=== PATIENT | female | born 1945 | race Hispanic/Latino ===

== ENCOUNTER 2020-02-21 06:22 | Day surgery (SDC) | payer MEDICARE ==
[2020-02-21 07:38] LABS: Basophils % (Auto) 0.8 % (0.0-1.8); Eosinophils # (Auto) 0.2 K/mm3 (0.0-0.4); Eosinophils % (Auto) 4.5 % (0.0-4.3); Hematocrit 33.5 % (30.3-42.9); Lymphocytes # (Auto) 1.2 K/mm3 (1.2-5.4); Lymphocytes % (Auto) 29.1 % (13.4-35.0); Mean Corpuscular HGB Conc 33 % (30-34); Mean Corpuscular Volume 79 fl (79-97); Monocytes # (Auto) 0.4 K/mm3 (0.0-0.8); Monocytes % (Auto) 10.1 % (0.0-7.3); Platelet Count 362 K/mm3 (140-440); Red Blood Count 4.27 M/mm3 (3.65-5.03); Red Cell Distribution Width 17.4 % (13.2-15.2)
[2020-02-21 07:49] LABS: INR 3.55 (0.87-1.13)
[2020-02-21] MEDS ORDERED: HEPARIN/NS 5000 UNIT/500ML 1,000 ML IR ONE (07:59)
[2020-02-21] MEDS ORDERED: HEPARIN 10,000 UNITS/10 ML VIAL ONE (07:59)
[2020-02-21] MEDS: SODIUM CHLORIDE 0.9% 500 ML 500 ML IV SCH ×2 (08:01→09:30)
[2020-02-21 08:07] LABS: Blood Urea Nitrogen 8 mg/dL (7-17); Calcium 9.5 mg/dL (8.4-10.2); Hemolysis Index 6
[2020-02-21 08:32] LABS: BUN/Creatinine Ratio 13
[2020-02-21 08:52] LABS: Alanine Aminotransferase 7 units/L (7-56); Albumin 3.8 g/dL (3.9-5); Blood Urea Nitrogen 8 mg/dL (7-17); Calcium 9.7 mg/dL (8.4-10.2); Hemolysis Index 8
[2020-02-21 09:23] LABS: BUN/Creatinine Ratio 13
[2020-02-21] MEDS: fentaNYL 100 MCG/2 ML INJ ONE ×5 (09:30→11:01)
[2020-02-21] MEDS: MIDAZOLAM 2 MG/2 ML INJ ONE ×6 (09:30→11:01)
[2020-02-21] MEDS: LIDOCAINE 1%/EPINEPHRINE 1:100,000 VIAL (20 ML) INFILTRATI ONE ×2 (09:32→09:36)
--- NOTE | 2020-02-21 11:18 | Short Stay Summary ---
Short Stay Documentation Date of service: 02/21/20 - History Principal diagnosis: Left leg DVT, left iliac vein stenosis H&P: obtained from office - Allergies and Medications Current Medications: Allergies Penicillins Allergy (Verified 02/21/20 07:02) Rash Sulfa (Sulfonamide Antibiotics) Allergy (Verified 02/21/20 07:02) Rash Home Medications Medication Instructions Recorded Confirmed Last Taken Type Cetirizine HCl [Zyrtec 10mg tab] 10 mg PO PRN PRN 02/21/20 02/21/20 1 Week Ago History ~02/14/20 Cholecalciferol (Vitamin D3) 5,000 unit PO DAILY 02/21/20 02/21/20 02/20/20 History [Vitamin D3] Cyanocobalamin (Vitamin B-12) 500 mcg PO DAILY 02/21/20 02/21/20 02/20/20 History [Vitamin B-12] Exenatide Microspheres [Bydureon] 2 mg SQ QWEEK 02/21/20 02/21/20 02/13/20 History Lisinopril [Zestril TAB] 2.5 mg PO QHS 02/21/20 02/21/20 02/20/20 History Rivaroxaban [Xarelto] 15 mg PO BID 02/21/20 02/21/20 02/21/20 05:00 History Rosuvastatin Calcium 5 mg PO DAILY 02/21/20 02/21/20 02/20/20 History glyBURIDE [Diabeta] 5 mg PO DAILY 02/21/20 02/21/20 02/20/20 History Active Medications Sodium Chloride (Nacl 0.9% 500 Ml) 500 mls @ 50 mls/hr IV DIRECT CARLEEN Last Admin: 02/21/20 09:30 Dose: 50 mls/hr Documented by: Clindamycin HCl (Cleocin 900 Mg/50 Ml) 900 mg in 50 mls @ 100 mls/hr IV PREOP NR; Protocol Stop: 02/21/20 12:00 Last Admin: 02/21/20 09:30 Dose: 50 mls Documented by: - Brief post op/procedure progress note Date of procedure: 02/21/20 Pre-op diagnosis: Left leg DVT, left iliac vein stenosis Post-op diagnosis: same Procedure: Left leg thrombectomy, placement of IVC filter Anesthesia: local Surgeon: ARUN HUSSEIN Estimated blood loss: minimal Pathology: none Specimen disposition: discarded (Clot) Condition: stable - Disposition Condition at discharge: Good Disposition: DC-01 TO HOME OR SELFCARE Short Stay Discharge Plan Activity: advance as tolerated Weight Bearing Status: Weight Bear as Tolerated Diet: regular Wound: keep clean and dry, per your surgeon's advice Follow up with: MARTI GILMORE FNP [Primary Care Provider] - 7 Days ARUN HUSSEIN MD [Staff Physician] - 7 Days
--- NOTE | 2020-02-21 11:27 | Operative Report ---
Operative Report Operative Report: Exam: Ultrasound of fluoroscopic guided placement of IVC filter, left leg thrombectomy Clinical indication: Patient with a history of left iliofemoral DVT with symptomatic left lower extremity swelling. Date: 02/21/2020 Procedure: Following an explanation of the risks, benefits and alternatives; written informed consent was obtained. The patient was brought to the angiographic suite and placed in supine position on the examination table. Initial ultrasound evaluation of her right groin demonstrated a patent right common femoral vein. The patient's right groin was prepped and draped in the usual sterile fashion. 1% lidocaine was used for anesthesia. Under ultrasound guidance, the right common femoral vein was cannulated with a 7 cm 18-gauge needle. A 0.035 guidewire was advanced centrally. The needle was removed and a 5 Cameroonian sheath placed. Contrast was then injected through the sheath. This demonstrates prompt opacification of the common femoral vein, external iliac vein, common iliac vein and IVC. The level of the renal veins are identified. The 5 Cameroonian sheath was removed and replaced with a 10 Cameroonian IVC filter introducer sheath and trocar. Together the trocar and introducer sheath were advanced over the guidewire under fluoroscopy to the infrarenal IVC. The trocar was removed. A Bard Camelia IVC filter was then advanced through the sheath and deployed in the infrarenal IVC. The sheath was withdrawn proximally an additional contrast injected. This demonstrates satisfactory positioning with no significant tilt. The sheath was then withdrawn into the left common iliac vein and locked with sterile heparinized saline. The patient was then placed prone. Initial ultrasound evaluation of the patient's popliteal fossa demonstrated a patent popliteal vein. The patient's popliteal fossa was prepped and draped in usual sterile fashion. 1% lidocaine was used for anesthesia. Under ultrasound guidance, the left popliteal vein was cannulated with a 7 cm 18-gauge needle. A 0.035 guidewire was advanced centrally. The needle was removed and a 5 Cameroonian sheath placed. A 5 Cameroonian vertebral catheter was then advanced through the sheath over the guidewire and together the catheter and guidewire were manipulated through the occluded femoral vein, common femoral v ein, external iliac vein and common iliac vein into the IVC. Contrast was injected which demonstrated true luminal placement within the IVC. A V 18 guidewire was then advanced through the catheter and the catheter withdrawn proximally with additional contrast being injected at multiple locations. This demonstrates occlusion of the common iliac vein, external iliac vein, common femoral vein. There is extensive collateral formation extending from the left common femoral vein through the pelvis. Additional contrast was then injected as the catheter withdrawn more proximally. The proximal superficial femoral vein is filled with thrombus. The more distal superficial femoral vein appears patent. The catheter was then advanced over the guidewire and the V 18 guidewire exchanged for an advantage guidewire. Together the advantage guidewire and catheter were used to cross the bifurcation. Together the catheter and guidewire were then advanced down the right side into the popliteal vein. The catheter was removed. Following serial dilation over the guidewire, and Innari Clotreiver sheath was then advanced over the guidewire and placed in the popliteal vein. The clot Treiber device was then advanced over the guidewire and down the right side to position the proximal end of the retrieval basket and the left common iliac vein just below the bifurcation. A total of 3 passes were made in multiple obliquities to remove as much clot as possible. The clot had the appearance of both predominantly chronic and acute component. Following thrombectomy, venoplasty was then performed using a 12 mm x 60 mm balloon from the common iliac vein into the common femoral vein on the left. Post thrombectomy and venoplasty imaging demonstrated brisk flow throughout the pelvis however, there is extrinsic compression of the vein which likely is a component of the patient's underlying DVT. At this point, the catheters, guidewires and sheaths were removed from both the left popliteal vein and right common femoral vein. Hemostasis was achieved using manual compression. Sterile compression dressings were applied. The patient tolerated all procedures well. There were no immediate pos tprocedure complications. Conscious sedation was performed under the guidance of radiologic nursing. Continuous cardiopulmonary monitoring was utilized. Impression: 1) Ultrasound of fluoroscopic guided placement of IVC filter. 2) Left lower extremity venography demonstrating thrombus extending from the IVC to involve the left common iliac vein, left external iliac vein, left common femoral vein and proximal left superficial femoral vein. 3) Mechanical thrombectomy using an RA clot Treiber thrombectomy device. 4) Venoplasty using 12 mm x 60 mm balloon of the common iliac vein, external iliac vein and common femoral vein on the left. 5) Postintervention imaging demonstrated brisk flow throughout the iliac veins with only minimal residual chronic thrombus. The patient does have extrinsic compression of the left common iliac vein which is narrowing the lumen. The patient will ultimately require treatment of her deep venous system with likely stents and reconstruction of her iliac veins.
[2020-02-21 13:36] VITALS: BP 131/68
== END 2020-02-21 14:00 | disposition home or self-care (01) ==
LOC: CATHLABREC 06:22
PROVIDERS: ATTEND Radiology Diagnostic Radiology
DX: I82.422 Acute embolism and thrombosis of left iliac vein (principal); I10 Essential (primary) hypertension; E78.00 Pure hypercholesterolemia, unspecified; M06.9 Rheumatoid arthritis, unspecified; Z88.0 Allergy status to penicillin; Z88.2 Allergy status to sulfonamides; Z79.899 Other long term (current) drug therapy; Z98.41 Cataract extraction status, right eye; Z98.42 Cataract extraction status, left eye; Z90.49 Acquired absence of other specified parts of digestive tract; Z90.710 Acquired absence of both cervix and uterus; Z98.890 Other specified postprocedural states
CPT/HCPCS: 36415; 37187; 37191; 37248; 37249; 75820; 80048; 80053; 85025; 85610; 85730; 99156; 99157; C1725; C1757; C1769; C1880; C1894; J1644; J2250; J3010; J7040; 76937; Q9967

== ENCOUNTER 2020-04-03 06:35 | Day surgery (SDC) | payer MEDICARE ==
[2020-04-03 07:23] LABS: Basophils % (Auto) 0.6 % (0.0-1.8); Eosinophils # (Auto) 0.1 K/mm3 (0.0-0.4); Eosinophils % (Auto) 1.8 % (0.0-4.3); Hematocrit 33.4 % (30.3-42.9); Lymphocytes # (Auto) 1.4 K/mm3 (1.2-5.4); Lymphocytes % (Auto) 29.8 % (13.4-35.0); Mean Corpuscular HGB Conc 33 % (30-34); Mean Corpuscular Volume 81 fl (79-97); Monocytes # (Auto) 0.3 K/mm3 (0.0-0.8); Monocytes % (Auto) 6.7 % (0.0-7.3); Platelet Count 297 K/mm3 (140-440); Red Blood Count 4.15 M/mm3 (3.65-5.03); Red Cell Distribution Width 17.7 % (13.2-15.2)
[2020-04-03 07:33] LABS: INR 1.06 (0.87-1.13)
[2020-04-03 07:34] LABS: Blood Urea Nitrogen 8 mg/dL (7-17); Calcium 9.8 mg/dL (8.4-10.2); Hemolysis Index 2
[2020-04-03] MEDS ORDERED: SODIUM CHLORIDE 0.9% 500 ML 500 ML ONE ×2 (07:38→10:45)
[2020-04-03 07:41] LABS: BUN/Creatinine Ratio 13
[2020-04-03] MEDS ORDERED: SODIUM CHLORIDE 0.9% 500 ML 500 ML IV SCH (08:00)
[2020-04-03] MEDS ORDERED: HEPARIN/NS 5000 UNIT/500ML 1,000 ML IR ONE (08:11)
[2020-04-03] MEDS ORDERED: KETOROLAC 30 MG/1 ML INJ ONE (08:11)
[2020-04-03] MEDS ORDERED: LIDOCAINE (2%) 20 MG/1 ML VIAL 20 ML MDV INFILTRATI ONE (08:12)
[2020-04-03] MEDS ORDERED: CLINDAMYCIN 600 MG/50 mL 600 MG/50 ML BAG IV ONE (08:29)
[2020-04-03] MEDS: MIDAZOLAM 2 MG/2 ML INJ ONE ×7 (08:57→11:15)
[2020-04-03] MEDS: fentaNYL 100 MCG/2 ML INJ ONE ×7 (08:57→11:19)
[2020-04-03] MEDS: LIDOCAINE (2%) 20 MG/1 ML VIAL 20 ML MDV INFILTRATI ONE ×3 (09:28→10:28)
[2020-04-03] MEDS: diphenhydrAMINE 50 MG/ML VIAL ONE ×2 (10:43→10:57)
[2020-04-03] MEDS ORDERED: fentaNYL 100 MCG/2 ML INJ ONE (11:19)
[2020-04-03] MEDS ORDERED: HEPARIN 10,000 UNITS/10 ML VIAL ONE (11:19)
[2020-04-03] MEDS ORDERED: MIDAZOLAM 2 MG/2 ML INJ ONE (11:19)
--- NOTE | 2020-04-03 13:09 | Short Stay Summary ---
Short Stay Documentation Date of service: 04/03/20 - History Principal diagnosis: left leg DVT H&P: obtained from office - Allergies and Medications Current Medications: Allergies Penicillins Allergy (Verified 02/21/20 07:02) Rash Sulfa (Sulfonamide Antibiotics) Allergy (Verified 02/21/20 07:02) Rash Home Medications Medication Instructions Recorded Confirmed Last Taken Type Cetirizine HCl [Zyrtec 10mg tab] 10 mg PO PRN PRN 02/21/20 04/03/20 04/02/20 History Cholecalciferol (Vitamin D3) 5,000 unit PO DAILY 02/21/20 04/03/20 04/02/20 History [Vitamin D3] Cyanocobalamin (Vitamin B-12) 500 mcg PO DAILY 02/21/20 04/03/20 04/02/20 History [Vitamin B-12] Exenatide Microspheres [Bydureon] 2 mg SQ QWEEK 02/21/20 04/03/20 04/02/20 History Lisinopril [Zestril TAB] 2.5 mg PO QHS 02/21/20 04/03/20 04/02/20 History Rivaroxaban [Xarelto] 20 mg PO DAILY 02/21/20 04/03/20 04/02/20 History 0800 Rosuvastatin Calcium 5 mg PO DAILY 02/21/20 04/03/20 04/02/20 History glyBURIDE [Diabeta] 10 mg PO BID 02/21/20 04/03/20 04/02/20 History oxyCODONE /ACETAMINOPHEN [Percocet 1 tab PO Q6HR PRN #18 tablet 02/21/20 04/03/20 Unknown Rx 5/325] Active Medications Sodium Chloride (Nacl 0.9% 500 Ml) 500 mls @ 50 mls/hr IV DIRECT CARLEEN Last Admin: 04/03/20 07:43 Dose: 50 mls/hr Documented by: - Brief post op/procedure progress note Date of procedure: 04/03/20 Pre-op diagnosis: left leg dvt Post-op diagnosis: same Procedure: left leg mechanical thrombectomy/venoplasty Anesthesia: local Surgeon: ARUN HUSSEIN Estimated blood loss: minimal Pathology: none Condition: stable - Disposition Condition at discharge: Good Disposition: DC-01 TO HOME OR SELFCARE Short Stay Discharge Plan Activity: advance as tolerated Weight Bearing Status: Weight Bear as Tolerated Diet: regular Wound: keep clean and dry, per your surgeon's advice Follow up with: MARTI GILMORE FNP [Primary Care Provider] - 7 Days
--- NOTE | 2020-04-03 13:16 | Operative Report ---
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 On the left, patient also has left leg DVT with recurrence secondary to nonambulatory status. Date: 04/03/2020 Procedure: Following an explanation of the risk, benefits and alternatives; written informed consent was obtained. The patient was brought to the angiographic suite and placed in supine position on the examination table. Ini tial ultrasound evaluation of the right groin demonstrated a patent right common femoral vein. Initial ultrasound evaluation of the left groin demonstrated thrombus within the proximal femoral vein. Both groins were prepped and draped in the usual sterile fashion. 1% lidocaine was used for anesthesia. On the right, under ultrasound guidance, the common femoral vein was cannulated with a 7 cm 18-gauge needle. A 0.035 guidewire was advanced centrally. The needle was removed and a 5 Uzbek sheath placed. On the left, under ultrasound guidance, the right proximal femoral vein was cannulated with a 7 cm 18-gauge needle. A 0.035 guidewire would not advance more more distally. Additional attempts to cannulate the proximal femoral vein, greater saphenous vein and common femoral vein were successful however, the wire would not advance distally. Contrast injected through the micro sheath was placed over the guidewire demonstrate extensive collateral formation with nonvisualization of the common femoral vein, external iliac vein and common iliac vein on the left. At that point, decision was made to attempt prone access. The patient was placed in prone position. Initial ultrasound evaluation of the right leg demonstrated a patent popliteal vein. Initial ultrasound evaluation of the left vein demonstrated thrombus within the popliteal vein. The short saphenous vein appears patent. Both popliteal fossa were prepped and draped in the usual sterile fashion. 1% lidocaine was used for anesthesia. Under ultrasound guidance, the popliteal vein was cannulated multiple times. A 7 cm 18-gauge needle was utilized. A 0.018 guidewire was then advanced through the needle and the needle exchanged for a micro-sheath. Contrast was injected through the micro sheath which demonstrates nonvisualization of the popliteal vein however, there is extensive collateral formation involving the entire upper thigh. Access was then obtained through the small saphenous vein. Again, throm bus is present within the small saphenous vein however it is nonocclusive. A 0.035 guidewire was advanced through the 7 cm 18-gauge needle used for access. The needle was removed and a micro-sheath placed. Contrast was injected which demonstrates thrombus in the visualized portion of the popliteal vein and extensive collateral formation. A 0.035 guidewire was in manipulated into the proximal femoral vein. The micro sheath was exchanged for a vertebral catheter and together the very vertebral catheter and guidewire advanced under fluoroscopy to the IVC. The 0.035 guidewire was exchanged for a 0.018 guidewire and contrast injected through the vertebral catheter was was withdrawn proximally. True luminal placement was noted throughout the course of the catheter. The lumen is only the size of the catheter. Thrombus is present throughout the visualized common iliac vein, external iliac vein, common femoral vein, femoral vein and popliteal vein. The profunda appears patent. Maceration of the thrombus was then performed using an 8 mm x 100 mm balloon from the IVC to the sheath insertion site. Additional venoplasty was performed in the common femoral vein. Contrast was injected which demonstrated flow extending from the popliteal vein into the IVC. At this point, the procedure was terminated. All guidewires, catheters and sheaths were removed and hemostasis achieved at all access sites using manual compression. A sterile dressing was applied. The patient tolerated the procedure well. There were no immediate postprocedure complications. Conscious sedation was performed under the guidance of radiologic nursing. Continuous cardiopulmonary monitoring was utilized. IMPRESSION: 1) Right lower extremity venogram demonstrating a widely patent system on the right extending into the IVC. The IVC filter has no retained thrombus. 2) Multiple attempts to cannulate the left common femoral vein, left greater saphenous vein and left proximal femoral vein without advancement of the guidewire. Contrast injected through a micro-sheath placed in the greater saphenous vein demonstrate extensive collateral formation draining the left. 3) Left small saphenous vein access from a prone approach with cannulation of the occluded popliteal vein, femoral vein, external iliac vein, common iliac vein into the IVC demonstrating stenosis, mature collateral formation and retained thrombus. Maceration of the thrombus and venoplasty was performed using an 8 mm x 100 mm balloon with luminal flow from the popliteal vein into the IVC at the conclusion of the procedure. Patient will need to remain on anticoagulation and return for additional interventions including stent placement in the common iliac vein and external iliac vein likely extending into the proximal femoral vein given the degree of stenosis in the common femoral vein.
[2020-04-03] MEDS ORDERED: oxyCODONE /ACETAMINOPHEN 5-325MG TAB PO ONE (13:26)
[2020-04-03] MEDS ORDERED: oxyCODONE /ACETAMINOPHEN 5-325MG TAB ONE (13:35)
[2020-04-03 14:24] VITALS: BP 130/61
== END 2020-04-03 14:30 | disposition home or self-care (01) ==
LOC: CATH 06:35
PROVIDERS: ATTEND Radiology Diagnostic Radiology
DX: I87.1 Compression of vein (principal); E78.00 Pure hypercholesterolemia, unspecified; I82.4Y2 Acute embolism and thrombosis of unspecified deep veins of left proximal lower extremity; I82.422 Acute embolism and thrombosis of left iliac vein; I10 Essential (primary) hypertension; Z90.49 Acquired absence of other specified parts of digestive tract; M06.9 Rheumatoid arthritis, unspecified; Z88.0 Allergy status to penicillin; Z88.2 Allergy status to sulfonamides; Z79.899 Other long term (current) drug therapy; Z98.41 Cataract extraction status, right eye; Z98.42 Cataract extraction status, left eye; Z90.710 Acquired absence of both cervix and uterus; Z98.890 Other specified postprocedural states; I26.99 Other pulmonary embolism without acute cor pulmonale
CPT/HCPCS: 36415; 37187; 37248; 75822; 76937; 80048; 85025; 85610; 85730; 99156; 99157; C1725; C1769; C1887; J1200; J1644; J2250; J3010; J7040; J1885; Q9967